=== PATIENT | female | born 1945 | race Caucasian/White ===

== ENCOUNTER 2017-11-17 15:53 | Inpatient (IN) ==
[2017-11-17 16:08] VITALS: BMI 29.7
--- NOTE | 2017-11-17 17:37 | DR.GENAD ---
HPI Time Seen Time Seen by Provider: 11/17/17 17:20 PCP Primary Care Physician: Juan HPI Comment HPI Comment: PATIENT WAS DIAGNOSE WITH THE FLU AND STREP THROAT 9 DAYS AGO. ON ANTIBIOTIC AND CONTINUE TO HAVE PRODUCTIVE COUGH, CHEST PAIN AND SOB. PATIENT ALSO TOOK MARIYA FLU. SHE IS STILL RUNNING FEVER. Complaint/Symptoms Chief Complaint Doctors Comments: GENERALIZE WEAKNES, FEVER, PRODUCTIVE COUGH ANOREXIA THAT IS GETTING WORSE. Chief Complaint:: Patient stated she has been weak with a fever for 9 days. Patient stated she tested positive for the flu and strep throat a few days ago. Patient states she can not get over it and has been taking all prescribed medications. Nurses notes reviewed Nurses Notes Review: Yes Source History Provided: Patient and Friend Mode of Arrival Mode of Arrival: Ambulatory Timing Onset of Chief Complaint: 11/08/17 Came on: Gradually Duration Duration: Constant Duration: Days Severity Severity: Moderate Modifying Factors Worsens:: NONE Improves:: NONE PMH PMH Past Medical History: Yes Past Medical History: Anemia, Cirrhosis, Diabetes, Hypertension, Liver Disease and PR Past Medical History Comment: Liver disease, esphopageal varies, chronic constipation Past Surgical History: Yes Surgical History: Angioplasty/Stents and Appendectomy Past Surgical History Comment: cataracts Family History History of Family Medical Conditions: Yes Family Medical History: Diabetes Mellitus and Hypertension Social History Does patient currently use any type of tobacco product: No Have you used tobacco products in the last 12 months: No Type of Tobacco Use: None Does any household member use tobacco: No Alcohol Use: None Do you use any recreational Drugs:: No Lives With: Family Lives Where: Home infectious screening In the last 2 months have you had wt loss of >10#?: NO Have you had fever, night sweats or hemotysis?: No Have you traveled outside the country in the last 6 months?: No Isolation: Standard ROS Review of Systems Constitutional: Weakness and Fatigue; negative Chills and Fever Eyes: No Symptoms Reported ENTM: Nose Congestion and Throat Pain Respiratoy: Productive Cough, Short of Breath and Wheezing Cardiovascular: Chest Pain Gastrointestinal/Abdominal: Abdominal Pain and Nausea Genitourinary: No Symptoms Reported Neurological: Headache, Weakness and Dizziness Musculoskeletal: Muscle Pain Hematologic/Lymphatic: Easy Bleeding and Easy Bruising Endocrine: Decreased Appetite; negative Flushing Psychiatric: No Symptoms Reported All Other Systems: Reviewed and Negative PE Vital Signs Vitals: Temperature 98.4 F Pulse Rate [Left] 83 Pulse Rate 68 Respiratory Rate 22 Blood Pressure [Left Arm] 148/66 Blood Pressure 117/59 O2 Sat by Pulse Oximetry 96 General Limitations: No Limitations General Appearance: Alert and In No Apparent Distress Head Head Exam: Normal Inspection Eyes Eye exam: Normal Appearance, PERRL and EOMI; negative Scleral Icterus and Conjunctival Injection ENT ENT Exam: Normal Oropharynx, Normal External Ear Exam, Mucous Membranes Dry and TM's Normal Bilaterally External Ear Exam: Normal External Inspection TM/Canal Exam: Bilateral: Normal Nose Exam: Normal Nose Exam Mouth Exam: Normal Inspection Throat Exam: Normal Inspection Neck Neck Exam: Normal Inspection and Trachea Midline Chest Chest Inspection: Normal Inspection and Symmetric Chest Wall Rise Respiratory Respiratory Exam: Normal Lung Sounds Bilat Respiratory Exam: Bilateral: Wheezing and Bilateral: Rhonchi and Lower: Wheezing and Lower: Rhonchi Cardiovascular Cardiovascular Exam: Regular Rate and Normal Rhythm Abdominal Exam Abdominal Exam: Normal Inspection, Normal Bowel Sounds and Soft; negative Tenderness Extremities Extremities Exam: Normal Inspection Back Back Exam: Normal Inspection Neurologic Neurological Exam: Alert, Oriented X3 and CN II-XII Intact; negative Motor Sensory Deficit Psychiatric Psychiatric Exam: Anxious Skin Skin Exam: Dry MDM Additional Information Additional Information Obtained From: Family Differential Diagnosis Differential Diagnosis: GENERALIZE WEAKNESS, PR, PNEUMONIA, BORNCHITIS, COURSE Treatment Treatment: SEE ORDERS. Education/Counseling Education/Counseling: Patient, Family and Education Educated On: Diagnosis ROR Labs Reviewed Laboratory Results Reviewed?: Yes Result Diagrams: 11/17/17 17:35 11/17/17 22:41 Laboratory: WBC 11.1 X10^3/uL (3.6-10.0) H 11/17/17 17:35 RBC 4.53 X10^6/uL (3.5-5.4) 11/17/17 17:35 Hgb 15.2 g/dL (12.0-16.0) 11/17/17 17:35 Hct 42.6 % (36.0-47.0) 11/17/17 17:35 MCV 94.1 fL (80.0-100.0) 11/17/17 17:35 MCH 33.5 pg (27.0-34.0) 11/17/17 17:35 MCHC 35.6 g/dL (33.0-35.0) H 11/17/17 17:35 RDW 14.5 % (11.6-16.5) 11/17/17 17:35 Plt Count 89 X10^3/uL (150.0-450.0) L 11/17/17 17:35 MPV 8.2 fL (7.4-11.0) 11/17/17 17:35 Neut % (Auto) 65.1 % (42.0-75.0) 11/17/17 17:35 Lymph % (Auto) 25.8 % (21.0-51.0) 11/17/17 17:35 [place] % (Auto) 7.0 % (0.0-13.0) 11/17/17 17:35 Eos % (Auto) 0.8 % (0.9-2.9) L 11/17/17 17:35 Baso % (Auto) 1.3 % (0.2-1.0) H 11/17/17 17:35 Neut # (Auto) 7.2 x10^3/uL (2.2-4.8) H 11/17/17 17:35 Lymph # (Auto) 2.9 X10^3/uL (1.3-2.9) 11/17/17 17:35 [place] # (Auto) 0.8 x10^3/uL (0.3-0.8) 11/17/17 17:35 Eos # (Auto) 0.1 x10^3/uL (0.0-0.2) 11/17/17 17:35 Baso # (Auto) 0.1 X10^3/uL (0.0-0.1) 11/17/17 17:35 Absolute Nucleated RBC 0.0 /100WBC 11/17/17 17:35 Sodium 135 mmol/L (136-145) L 11/17/17 17:35 Corrected Sodium 140 mmol/L (136-145) 11/17/17 17:35 Potassium 4.3 mmol/L (3.5-5.1) 11/17/17 17:35 Chloride 101 mmol/L (98-107) 11/17/17 17:35 Carbon Dioxide 27.2 mmol/L (21-32) 11/17/17 17:35 BUN 19 mg/dL (7-18) H 11/17/17 17:35 Creatinine 1.01 mg/dL (0.55-1.02) 11/17/17 17:35 Est GFR (MDRD) Af Amer > 60 (>60) 11/17/17 17:35 Est GFR (MDRD) Non-Af 57 (>60) L 11/17/17 17:35 Glucose 469 mg/dL (65-99) H 11/17/17 22:41 POC Glucose (mg/dL) 404 mg/dL (65-99) H* 11/17/17 22:19 Calcium 9.3 mg/dL (8.5-10.1) 11/17/17 17:35 Corrected Calcium 10.4 mg/dL (8.5-10.1) H 11/17/17 17:35 Total Bilirubin 1.80 mg/dL (0.2-1.0) H 11/17/17 17:35 AST 49 Units/L (15-37) H 11/17/17 17:35 ALT 47 Units/L (12-78) 11/17/17 17:35 Alkaline Phosphatase 124 Units/L (46-116) H 11/17/17 17:35 Total Protein 7.3 g/dL (6.4-8.2) 11/17/17 17:35 Albumin 2.6 g/dL (3.4-5.0) L 11/17/17 17:35 Globulin 4.7 g/dL (2.5-4.5) H 11/17/17 17:35 Albumin/Globulin Ratio 0.6 Ratio (1.1-2.1) L 11/17/17 17:35 Specimen Type Clean catch urine 11/17/17 18:04 Urine Color [place] (YELLOW) 11/17/17 18:04 Urine Appearance Slightly hazy (CLEAR) 11/17/17 18:04 Urine pH 5.0 (5.0 - 8.0) 11/17/17 18:04 Ur Specific [place] 1.025 (1.000-1.030) 11/17/17 18:04 Urine Protein 1+ (NEGATIVE) 11/17/17 18:04 Urine Glucose (UA) 4+ (NEGATIVE) 11/17/17 18:04 Urine Ketones 1+ (NEGATIVE) 11/17/17 18:04 Urine Occult Blood 1+ (NEGATIVE) 11/17/17 18:04 Urine Nitrite Negative (NEGATIVE) 11/17/17 18:04 Urine Bilirubin 1+ (NEGATIVE) 11/17/17 18:04 Urine Urobilinogen 2+ (NORMAL) 11/17/17 18:04 Ur Leukocyte Esterase 1+ (NEGATIVE) 11/17/17 18:04 Urine RBC 3-5 /HPF (NONE SEEN) 11/17/17 18:04 Urine WBC 0-2 /HPF (NONE SEEN) 11/17/17 18:04 Ur Squamous Epith Cells Moderate /HPF (NEGATIVE) 11/17/17 18:04 Urine Bacteria Trace /HPF (NEGATIVE) 11/17/17 18:04 Urine Mucus Few /HPF (NEGATIVE) 11/17/17 18:04 Urine Yeast Few /HPF (NEGATIVE) 11/17/17 18:04 Ur Culture Indicated? No/not indicated 11/17/17 18:04 Acetone, Semi-Quant Negative (NEGATIVE) 11/17/17 17:35 XRAY XRAY Interpreted by: Radiologist XRAY Findings: REPORT DISCUSS WITH PATIENT. Diagnosis Discharge Problem: Generalized weakness, Dehydration, Bronchitis
[2017-11-17 17:50] LABS: BASOPHILS # (AUTO) 0.1 X10^3/uL (0.0-0.1); BASOPHILS % (AUTO) 1.3 % (0.2-1.0); EOSINOPHILS # (AUTO) 0.1 x10^3/uL (0.0-0.2); EOSINOPHILS % (AUTO) 0.8 % (0.9-2.9); HEMATOCRIT 42.6 % (36.0-47.0); HEMOGLOBIN 15.2 g/dL (12.0-16.0); LYMPHOCYTES # (AUTO) 2.9 X10^3/uL (1.3-2.9); LYMPHOCYTES % (AUTO) 25.8 % (21.0-51.0); MEAN CORPUSCULAR HEMOGLOBIN 33.5 pg (27.0-34.0); MEAN CORPUSCULAR HGB CONC 35.6 g/dL (33.0-35.0); MEAN CORPUSCULAR VOLUME 94.1 fL (80.0-100.0); MEAN PLATELET VOLUME 8.2 fL (7.4-11.0); MONOCYTES # (AUTO) 0.8 x10^3/uL (0.3-0.8); NEUTROPHILS # (AUTO) 7.2 x10^3/uL (2.2-4.8); NEUTROPHILS % (AUTO) 65.1 % (42.0-75.0); PLATELET COUNT 89 X10^3/uL (150.0-450.0); RED BLOOD COUNT 4.53 X10^6/uL (3.5-5.4); RED CELL DISTRIBUTION WIDTH 14.5 % (11.6-16.5); WHITE BLOOD COUNT 11.1 X10^3/uL (3.6-10.0)
--- NOTE | 2017-11-17 17:55 | RAD ---
HISTORY: Cough. Study: Portable chest. Comparison: None. Findings: Study is limited secondary to technique and costophrenic angles off the field of view. The trachea is midline. The cardiac silhouette is at the upper limits of normal. No obvious focal c onsolidation, pleural effusion, or pneumothorax. Degenerative changes of the shoulders. The osseous structures otherwise appear normal for age. IMPRESSION: No acute cardiopulmonary disease. Reported By:
[2017-11-17 18:03] LABS: ALANINE AMINOTRANSFERASE 47 Units/L (12-78); ALBUMIN 2.6 g/dL (3.4-5.0); ALKALINE PHOSPHATASE 124 Units/L (46-116); ASPARTATE AMINO TRANSFERASE 49 Units/L (15-37); BLOOD UREA NITROGEN 19 mg/dL (7-18); CALCIUM 9.3 mg/dL (8.5-10.1); CARBON DIOXIDE 27.2 mmol/L (21-32); CHLORIDE 101 mmol/L (98-107); COR CA(FOR HYPOALB) 10.4 mg/dL (8.5-10.1); COR NA(FOR HYPERGLY) 140 mmol/L (136-145); CREATININE 1.01 mg/dL (0.55-1.02); SODIUM 135 mmol/L (136-145); TOTAL PROTEIN 7.3 g/dL (6.4-8.2); eGFR NON BLACK RACES 57 (>60)
[2017-11-17] MEDS: NS 1000 ML 1,000 ML IV SCH (18:06)
[2017-11-17 18:26] LABS: BILIRUBIN,URINE 1+ (NEGATIVE); BLOOD/HEMOGLOBIN,URINE 1+ (NEGATIVE); GLUCOSE, URINE 4+ (NEGATIVE); KETONES,URINE 1+ (NEGATIVE); LEUKOCYTE ESTERASE ,URINE 1+ (NEGATIVE); NITRITES,URINE NEGATIVE (NEGATIVE); PROTEIN,URINE 1+ (NEGATIVE); UROBILINOGEN,URINE 2+ (NORMAL)
[2017-11-17 18:27] LABS: APPEARANCE,URINE SLIGHTLY HAZY (CLEAR); COLOR,URINE ORANGE (YELLOW)
[2017-11-17 18:35] LABS: BACTERIA,URINE TRACE /HPF (NEGATIVE); MUCUS,URINE FEW /HPF (NEGATIVE); SQUAMOUS EPITHELIAL CELL,UR MODERATE /HPF (NEGATIVE); YEAST,URINE FEW /HPF (NEGATIVE)
[2017-11-17] MEDS ORDERED: SOLU-Medrol 40 MG VIAL IVP ONE (20:07)
[2017-11-17] MEDS ORDERED: NS 100 ML IV 100 ML IV ONE (20:13)
[2017-11-17] MEDS ORDERED: ROCEPHIN VIAL 1 GRAM IVP SCH (20:15)
[2017-11-17] MEDS: ROCEPHIN VIAL 1 GRAM IVP SCH (21:51)
[2017-11-17] MEDS: SOLU-Medrol 40 MG VIAL IVP SCH (21:51)
[2017-11-17] MEDS: DUONEB 0.5 MG/3 MG NEB SCH (22:39)
[2017-11-17] MEDS: HumuLIN R SC PRN (23:35)
[2017-11-18] MEDS: DUONEB 0.5 MG/3 MG NEB SCH ×6 (01:25→20:02)
[2017-11-18] MEDS: NS 1000 ML 1,000 ML IV SCH ×4 (02:45→22:33)
[2017-11-18 05:16] LABS: BASOPHILS % (AUTO) 0.3 % (0.2-1.0); EOSINOPHILS % (AUTO) 0.1 % (0.9-2.9); HEMATOCRIT 38.6 % (36.0-47.0); HEMOGLOBIN 13.5 g/dL (12.0-16.0); LYMPHOCYTES # (AUTO) 1.2 X10^3/uL (1.3-2.9); LYMPHOCYTES % (AUTO) 20.9 % (21.0-51.0); MEAN CORPUSCULAR HEMOGLOBIN 33.4 pg (27.0-34.0); MEAN CORPUSCULAR HGB CONC 34.8 g/dL (33.0-35.0); MEAN CORPUSCULAR VOLUME 95.8 fL (80.0-100.0); MEAN PLATELET VOLUME 8.5 fL (7.4-11.0); MONOCYTES # (AUTO) 0.1 x10^3/uL (0.3-0.8); MONOCYTES % (AUTO) 1.9 % (0.0-13.0); NEUTROPHILS # (AUTO) 4.5 x10^3/uL (2.2-4.8); NEUTROPHILS % (AUTO) 76.8 % (42.0-75.0); PLATELET COUNT 68 X10^3/uL (150.0-450.0); RED BLOOD COUNT 4.03 X10^6/uL (3.5-5.4); RED CELL DISTRIBUTION WIDTH 14.5 % (11.6-16.5); WHITE BLOOD COUNT 5.9 X10^3/uL (3.6-10.0)
[2017-11-18 05:17] LABS: BLOOD UREA NITROGEN 18 mg/dL (7-18); CALCIUM 8.3 mg/dL (8.5-10.1); CARBON DIOXIDE 26.4 mmol/L (21-32); CHLORIDE 103 mmol/L (98-107); COR NA(FOR HYPERGLY) 144 mmol/L (136-145); SODIUM 135 mmol/L (136-145); eGFR NON BLACK RACES 52 (>60)
[2017-11-18] MEDS: HumuLIN R SC PRN ×3 (05:42→17:39)
[2017-11-18] MEDS: SOLU-Medrol 40 MG VIAL IVP SCH (08:20)
[2017-11-18] MEDS ORDERED: NYSTATIN CREAM ONE ×2 (10:36→11:04)
[2017-11-18] MEDS: NYSTATIN CREAM TOP SCH ×3 (10:43→22:26)
[2017-11-18] MEDS ORDERED: TESSALON PERLES PO PRN (10:47)
[2017-11-18] MEDS ORDERED: TUSSIONEX PENNKINETIC SUSP PO PRN (10:48)
[2017-11-18] MEDS ORDERED: ROXICODONE TAB 5 MG PO PRN (10:49)
[2017-11-18] MEDS ORDERED: SALINE 3% 15 ML NEB TX ONE (10:52)
[2017-11-18] MEDS ORDERED: PROVENTIL NEB TX 0.083% 2.5MG/ 3ML NEB PRN (10:53)
[2017-11-18] MEDS ORDERED: SALINE 3% 15 ML NEB TX NEB ONE (10:54)
[2017-11-18] MEDS: INDERAL TAB 10 MG PO SCH (12:44)
[2017-11-18] MEDS: ALDACTONE TAB 25 MG PO SCH (12:44)
[2017-11-18] MEDS: CELEXA PO SCH ×2 (12:44→22:25)
[2017-11-18] MEDS: PROTONIX TAB 40 MG PO SCH (12:44)
[2017-11-18] MEDS: CHRONULAC PO SCH ×2 (13:00→22:25)
--- NOTE | 2017-11-18 14:25 | DR.H&P ---
H&P - History & Physical for Day of: H&P Date: 11/17/17 - Chief Complaint Chief Complaint: FEVER, CCC - History of Present Illness History of Present Illness: 72 WF ER ADMISSION AFTER PRESENTING WITH CO WEAKNESS , CCC, SOB, RECENTLY DIAGNOSED WITH FLU AND AND STREP THROAT BY PCP. PT STATES SHE HAD COMPLETED 2 ROUND OF ORAL ANTIBIOTICS, CONTINUES WITH WEAKNESS AND TIGHT COUGH. PT HAS PMH OF HTN, OA, DM AND CHRONIC LIVER FAILURE. PT ADMITTED FOR TREATEMENT OF ACUTE RESP ILLNESS. - Past Medical History Past Medical History: [place], Hypertension, Diabetes, Liver Disease, Cirrhosis, Anemia - Past Surgical History Surgical History: Angioplasty/Stents, Appendectomy - Family History Family Medical History: Diabetes Mellitus, Hypertension - Social History Does patient currently use any type of tobacco product: No Have you used tobacco products in the last 12 months: No Type of Tobacco Use: None Does any household member use tobacco: No Alcohol Use: None Drug Use: None - Medications Home Medications: shellfish derived Allergy (Verified 11/17/17 16:08) CONTINUE taking the following medications albuterol sulfate [ProAir HFA] 1 - 2 puff INHALATION Q4H PRN 11/17/17 [History] amoxicillin 1 tab PO TID 11/17/17 [History] benzonatate 2 tab PO Q4-6H PRN 11/17/17 [History] citalopram 1 tab PO BID 11/17/17 [History] clobetasol 1 applic TOPICAL BID PRN 11/17/17 [History] codeine-guaifenesin [Cheratussin AC] 5 ml PO Q8H PRN 11/17/17 [History] insulin glargine [Lantus Solostar U-100 Insulin] 45 units SUBCUT HS 11/17/17 [ History] lactulose 45 ml PO TID 11/17/17 [History] levofloxacin 1 tab PO DAILY 11/17/17 [History] nadolol 1 tab PO DAILY 11/17/17 [History] oseltamivir [Tamiflu] 1 tab PO BID 11/17/17 [History] oxycodone 1 tab PO Q4-6H PRN 11/17/17 [History] pantoprazole 1 tab PO DAILY 11/17/17 [History] spironolactone 2 tab PO DAILY 11/17/17 [History] - Review of Systems Constitutional: Fever, Weakness, Malaise Eyes: No Symptoms Reported ENT: Nose Discharge, Nose Congestion, Throat Pain Respiratory: Cough, Shortness of Breath, SOB with Excertion, Wheezing Cardiovascular: No Symptoms Reported, Edema Gastrointestinal: No Symptoms Reported, Nausea Genitourinary: No Symptoms Reported Musculoskeletal: No Symptoms Reported Skin: Jaundice Neurological: No Symptoms Reported - Physical Exam Vital Signs: Temperature 98.0 F Pulse Rate [Left] 78 Pulse Rate 68 Respiratory Rate 20 Blood Pressure [Left Arm] 131/62 Blood Pressure 117/59 O2 Sat by Pulse Oximetry 94 Oriented: Normal Eyes: Normal Ear: Normal Nose: Normal Throat: Dry Respiratory: RLL Diminished, LLL Diminished Cardiovascular: Normal, Edema (BILATERAL TRACE EDEMA TO LE'S) : Normal Auscultation: Bowel Sounds: Normal Tenderness: Epigastric (MILD) Skin: Decreased Turgur Musculoskeletal: Normal Psychiatric: Anxiety Affect: Anxious Speech Pattern: Clear - Assessment/Plan (1) Cirrhosis Status: Acute Plan: ADMIT, RESP CONSULT, BLOOD AND SPUTUM CULTURES. IV ATBX, SUPPLEMENTAL O2. BLOOD PRESSURE AND BLOOD SUGAR CONTROL. VERIFY HOME MEDS, CXR ON ADMISSION (2) Diabetes Status: Acute (3) Bronchitis Status: Acute (4) Dehydration Status: Acute (5) Generalized weakness Status: Acute - Allergies Allergies/Adverse Reactions: Allergies Allergy/AdvReac Type Severity Reaction Status Date / Time shellfish derived Allergy Verified 11/17/17 16:08
--- NOTE | 2017-11-18 14:30 | PCM.PROG ---
Progress Note - Progress Note for Day of Date of Exam: 11/18/17 - Subjective Subjective: 72 WF ER ADMISSION ON 11/17 WITH ACUTE BRONCHITIS AND WEAKNESS, ELEVATED BLOOD SUGAR LEVELS. BLOOD AND SPUTUM COLLECTED PER PNEUMONIA PROTOCOL, PT CURRENTLY ON INSULIN THERAPY FOR BS CONTROL. NURSING STAFF REPORTS PT HAVING EPISODES OF "WORD SALAD" PT HAS HX LIVER FAILURE, WILL RESUME LACTULOSE AND CHECK AMMONIA LEVEL THIS AM. CONTINUE WITH IV ATBX, RESP THERAPY, SUPPLEMENTAL O2 - Past Medical Family Social History Past Med/Fam/Surg Hx: No changes since H&P Allergies: Allergies shellfish derived Allergy (Verified 11/17/17 16:08) - Review of Systems ROS: No change since H&P - Vital Signs and I&O's Vital Signs: Temperature 98.0 F Pulse Rate [Left] 78 Pulse Rate 68 Respiratory Rate 20 Blood Pressure [Left Arm] 131/62 Blood Pressure 117/59 O2 Sat by Pulse Oximetry 94 Intake and Output: Intake & Output 11/16/17 11/17/17 11/18/17 11/19/17 11:59 11:59 11:59 11:59 Intake Total 824 / 824 Output Total 600 / 600 Balance 224 / 224 - Physical Exam Oriented: Normal Eyes: Normal Ear: Normal Nose: Normal Throat: Dry Respiratory: Diminished Cardiovascular: Normal, Edema (BILATERAL TRACE EDEMA TO LE'S) : Normal Auscultation: Bowel Sounds: Normal Tenderness: Epigastric (MILD) Skin: Decreased Turgur Musculoskeletal: Normal Psychiatric: Anxiety Affect: Anxious Speech Pattern: Clear - Laboratory and Diagnostics Result Diagrams: 11/18/17 04:03 11/18/17 11:45 Labs: Laboratory WBC 5.9 X10^3/uL (3.6-10.0) 11/18/17 04:03 RBC 4.03 X10^6/uL (3.5-5.4) 11/18/17 04:03 Hgb 13.5 g/dL (12.0-16.0) 11/18/17 04:03 Hct 38.6 % (36.0-47.0) 11/18/17 04:03 MCV 95.8 fL (80.0-100.0) 11/18/17 04:03 MCH 33.4 pg (27.0-34.0) 11/18/17 04:03 MCHC 34.8 g/dL (33.0-35.0) 11/18/17 04:03 RDW 14.5 % (11.6-16.5) 11/18/17 04:03 Plt Count 68 X10^3/uL (150.0-450.0) L 11/18/17 04:03 MPV 8.5 fL (7.4-11.0) 11/18/17 04:03 Neut % (Auto) 76.8 % (42.0-75.0) H 11/18/17 04:03 Lymph % (Auto) 20.9 % (21.0-51.0) L 11/18/17 04:03 [place] % (Auto) 1.9 % (0.0-13.0) 11/18/17 04:03 Eos % (Auto) 0.1 % (0.9-2.9) L 11/18/17 04:03 Baso % (Auto) 0.3 % (0.2-1.0) 11/18/17 04:03 Neut # (Auto) 4.5 x10^3/uL (2.2-4.8) 11/18/17 04:03 Lymph # (Auto) 1.2 X10^3/uL (1.3-2.9) L 11/18/17 04:03 [place] # (Auto) 0.1 x10^3/uL (0.3-0.8) L 11/18/17 04:03 Eos # (Auto) 0.0 x10^3/uL (0.0-0.2) 11/18/17 04:03 Baso # (Auto) 0.0 X10^3/uL (0.0-0.1) 11/18/17 04:03 Absolute Nucleated RBC 0.0 /100WBC 11/18/17 04:03 Sodium 135 mmol/L (136-145) L 11/18/17 04:03 Corrected Sodium 144 mmol/L (136-145) 11/18/17 04:03 Potassium 5.0 mmol/L (3.5-5.1) 11/18/17 04:03 Chloride 103 mmol/L (98-107) 11/18/17 04:03 Carbon Dioxide 26.4 mmol/L (21-32) 11/18/17 04:03 BUN 18 mg/dL (7-18) 11/18/17 04:03 Creatinine 1.10 mg/dL (0.55-1.02) H 11/18/17 04:03 Est GFR (MDRD) Af Amer > 60 (>60) 11/18/17 04:03 Est GFR (MDRD) Non-Af 52 (>60) L 11/18/17 04:03 Glucose 461 mg/dL (65-99) H 11/18/17 11:45 POC Glucose (mg/dL) 443 mg/dL (65-99) H* 11/18/17 11:28 Calcium 8.3 mg/dL (8.5-10.1) L 11/18/17 04:03 Corrected Calcium 10.4 mg/dL (8.5-10.1) H 11/17/17 17:35 Total Bilirubin 1.80 mg/dL (0.2-1.0) H 11/17/17 17:35 AST 49 Units/L (15-37) H 11/17/17 17:35 ALT 47 Units/L (12-78) 11/17/17 17:35 Alkaline Phosphatase 124 Units/L (46-116) H 11/17/17 17:35 Ammonia 25 umol/L (11-32) 11/18/17 09:25 Total Protein 7.3 g/dL (6.4-8.2) 11/17/17 17:35 Albumin 2.6 g/dL (3.4-5.0) L 11/17/17 17:35 Globulin 4.7 g/dL (2.5-4.5) H 11/17/17 17:35 Albumin/Globulin Ratio 0.6 Ratio (1.1-2.1) L 11/17/17 17:35 Specimen Type Clean catch urine 11/17/17 18:04 Urine Color [place] (YELLOW) 11/17/17 18:04 Urine Appearance Slightly hazy (CLEAR) 11/17/17 18:04 Urine pH 5.0 (5.0 - 8.0) 11/17/17 18:04 Ur Specific [place] 1.025 (1.000-1.030) 11/17/17 18:04 Urine Protein 1+ (NEGATIVE) 11/17/17 18:04 Urine Glucose (UA) 4+ (NEGATIVE) 11/17/17 18:04 Urine Ketones 1+ (NEGATIVE) 11/17/17 18:04 Urine Occult Blood 1+ (NEGATIVE) 11/17/17 18:04 Urine Nitrite Negative (NEGATIVE) 11/17/17 18:04 Urine Bilirubin 1+ (NEGATIVE) 11/17/17 18:04 Urine Urobilinogen 2+ (NORMAL) 11/17/17 18:04 Ur Leukocyte Esterase 1+ (NEGATIVE) 11/17/17 18:04 Urine RBC 3-5 /HPF (NONE SEEN) 11/17/17 18:04 Urine WBC 0-2 /HPF (NONE SEEN) 11/17/17 18:04 Ur Squamous Epith Cells Moderate /HPF (NEGATIVE) 11/17/17 18:04 Urine Bacteria Trace /HPF (NEGATIVE) 11/17/17 18:04 Urine Mucus Few /HPF (NEGATIVE) 11/17/17 18:04 Urine Yeast Few /HPF (NEGATIVE) 11/17/17 18:04 Ur Culture Indicated? No/not indicated 11/17/17 18:04 Acetone, Semi-Quant Negative (NEGATIVE) 11/17/17 17:35 - Plan (1) Bronchitis Status: Acute Plan: RESP CONSULT, BLOOD AND SPUTUM CULTURES. IV ATBX, SUPPLEMENTAL O2. BLOOD PRESSURE AND BLOOD SUGAR CONTROL. CONTINUED HOME MEDS, CXR Q AM. AMMONIA LEVEL, STRICT I & OS (2) Cirrhosis Status: Acute (3) Diabetes Status: Acute (4) Dehydration Status: Acute (5) Generalized weakness Status: Acute
[2017-11-18] MEDS: ZITHROMAX INJ 500 MG VIAL 500 MG in NS 250 ML IV 250 ML IV SCH (14:56)
[2017-11-18] MEDS: XIFAXAN PO SCH ×2 (17:39→22:26)
[2017-11-18] MEDS ORDERED: SNACK - Diabetic Appropriate PO SCH (20:00)
[2017-11-18] MEDS ORDERED: NS 100 ML IV + SPIKE MINIBAG* 100 ML IV ONE (21:01)
[2017-11-18] MEDS: ROCEPHIN VIAL 1 GRAM IVP SCH (22:27)
[2017-11-18] MEDS: LANTUS SC SCH (22:27)
[2017-11-18] MEDS: SNACK - Diabetic Appropriate PO SCH (22:28)
[2017-11-19] MEDS: DUONEB 0.5 MG/3 MG NEB SCH ×6 (00:30→19:59)
[2017-11-19 05:46] LABS: BASOPHILS % (AUTO) 0.3 % (0.2-1.0); EOSINOPHILS % (AUTO) 0.2 % (0.9-2.9); HEMATOCRIT 35.9 % (36.0-47.0); HEMOGLOBIN 12.8 g/dL (12.0-16.0); LYMPHOCYTES # (AUTO) 2.4 X10^3/uL (1.3-2.9); LYMPHOCYTES % (AUTO) 25.1 % (21.0-51.0); MEAN CORPUSCULAR HEMOGLOBIN 33.7 pg (27.0-34.0); MEAN CORPUSCULAR HGB CONC 35.7 g/dL (33.0-35.0); MEAN CORPUSCULAR VOLUME 94.3 fL (80.0-100.0); MEAN PLATELET VOLUME 8.5 fL (7.4-11.0); MONOCYTES # (AUTO) 0.4 x10^3/uL (0.3-0.8); MONOCYTES % (AUTO) 4.2 % (0.0-13.0); NEUTROPHILS # (AUTO) 6.7 x10^3/uL (2.2-4.8); NEUTROPHILS % (AUTO) 70.2 % (42.0-75.0); PLATELET COUNT 70 X10^3/uL (150.0-450.0); RED CELL DISTRIBUTION WIDTH 14.3 % (11.6-16.5); WHITE BLOOD COUNT 9.6 X10^3/uL (3.6-10.0)
[2017-11-19] MEDS: CHRONULAC PO SCH ×3 (06:01→21:54)
[2017-11-19] MEDS: NYSTATIN CREAM TOP SCH ×3 (06:02→22:01)
[2017-11-19] MEDS: HumuLIN R SC PRN ×4 (06:02→22:01)
[2017-11-19] MEDS: NS 1000 ML 1,000 ML IV SCH ×3 (06:03→18:03)
[2017-11-19 06:05] LABS: ALANINE AMINOTRANSFERASE 38 Units/L (12-78); ALBUMIN 2.1 g/dL (3.4-5.0); ALKALINE PHOSPHATASE 96 Units/L (46-116); ASPARTATE AMINO TRANSFERASE 41 Units/L (15-37); BLOOD UREA NITROGEN 14 mg/dL (7-18); CALCIUM 8.2 mg/dL (8.5-10.1); CARBON DIOXIDE 27.3 mmol/L (21-32); CHLORIDE 105 mmol/L (98-107); COR CA(FOR HYPOALB) 9.7 mg/dL (8.5-10.1); COR NA(FOR HYPERGLY) 142 mmol/L (136-145); CREATININE 0.93 mg/dL (0.55-1.02); SODIUM 137 mmol/L (136-145); eGFR NON BLACK RACES > 60 (>60)
[2017-11-19] MEDS: XIFAXAN PO SCH ×2 (08:55→22:05)
[2017-11-19] MEDS: ZITHROMAX INJ 500 MG VIAL 500 MG in NS 250 ML IV 250 ML IV SCH (08:55)
[2017-11-19] MEDS: ALDACTONE TAB 25 MG PO SCH (08:55)
[2017-11-19] MEDS: INDERAL TAB 10 MG PO SCH (08:57)
[2017-11-19] MEDS: CELEXA PO SCH ×2 (08:57→21:56)
[2017-11-19] MEDS: PROTONIX TAB 40 MG PO SCH (08:57)
--- NOTE | 2017-11-19 09:38 | RAD ---
Examination: Portable AP chest History: SOB Comparison 11/17/2017 Findings: Continued normal heart size with essentially clear lungs and pleural spaces. Impression: No significant change or acute abnormality. Reported By:
--- NOTE | 2017-11-19 11:00 | PCM.PROG ---
Progress Note - Progress Note for Day of Date of Exam: 11/19/17 - Subjective Subjective: 72 WF ER ADMISSION ON 11/17 WITH ACUTE BRONCHITIS AND WEAKNESS, ELEVATED BLOOD SUGAR LEVELS. BLOOD AND SPUTUM COLLECTED PER PNEUMONIA PROTOCOL, PT CURRENTLY ON INSULIN THERAPY FOR BS CONTROL. NURSING STAFF REPORTS PT HAVING EPISODES OF "WORD SALAD" PT HAS HX LIVER FAILURE, AMMONIA LEVEL NORMAL, CURRENTLY ON XIFAXIN AND LACTULOSE.CONTINUE WITH IV ATBX, RESP THERAPY, SUPPLEMENTAL O2, BUDESONIDE TO NEBS, D/C'D IV STEROIDS - Past Medical Family Social History Past Med/Fam/Surg Hx: No changes since H&P Allergies: Allergies shellfish derived Allergy (Verified 11/17/17 16:08) - Review of Systems ROS: No change since H&P - Vital Signs and I&O's Vital Signs: Temperature 98.2 F Pulse Rate [Left] 76 Pulse Rate 86 Respiratory Rate 20 Blood Pressure [Left Arm] 134/78 Blood Pressure 117/59 O2 Sat by Pulse Oximetry 92 Intake and Output: Intake & Output 11/16/17 11/17/17 11/18/17 11/19/17 11:59 11:59 11:59 11:59 Intake Total 824 / 824 2280 / 2280 Output Total 600 / 600 Balance 224 / 224 2280 / 2280 - Physical Exam Oriented: Normal Eyes: Normal Ear: Normal Nose: Normal Throat: Dry Respiratory: Diminished Cardiovascular: Normal, Edema (BILATERAL TRACE EDEMA TO LE'S) : Normal Auscultation: Bowel Sounds: Normal Tenderness: Epigastric (MILD) Skin: Decreased Turgur Musculoskeletal: Normal Psychiatric: Anxiety Affect: Anxious Speech Pattern: Clear, Appropriate - Laboratory and Diagnostics Result Diagrams: 11/19/17 04:25 11/19/17 04:25 Labs: Laboratory WBC 9.6 X10^3/uL (3.6-10.0) 11/19/17 04:25 RBC 3.80 X10^6/uL (3.5-5.4) 11/19/17 04:25 Hgb 12.8 g/dL (12.0-16.0) 11/19/17 04:25 Hct 35.9 % (36.0-47.0) L 11/19/17 04:25 MCV 94.3 fL (80.0-100.0) 11/19/17 04:25 MCH 33.7 pg (27.0-34.0) 11/19/17 04:25 MCHC 35.7 g/dL (33.0-35.0) H 11/19/17 04:25 RDW 14.3 % (11.6-16.5) 11/19/17 04:25 Plt Count 70 X10^3/uL (150.0-450.0) L 11/19/17 04:25 MPV 8.5 fL (7.4-11.0) 11/19/17 04:25 Neut % (Auto) 70.2 % (42.0-75.0) 11/19/17 04:25 Lymph % (Auto) 25.1 % (21.0-51.0) 11/19/17 04:25 [place] % (Auto) 4.2 % (0.0-13.0) 11/19/17 04:25 Eos % (Auto) 0.2 % (0.9-2.9) L 11/19/17 04:25 Baso % (Auto) 0.3 % (0.2-1.0) 11/19/17 04:25 Neut # (Auto) 6.7 x10^3/uL (2.2-4.8) H 11/19/17 04:25 Lymph # (Auto) 2.4 X10^3/uL (1.3-2.9) 11/19/17 04:25 [place] # (Auto) 0.4 x10^3/uL (0.3-0.8) 11/19/17 04:25 Eos # (Auto) 0.0 x10^3/uL (0.0-0.2) 11/19/17 04:25 Baso # (Auto) 0.0 X10^3/uL (0.0-0.1) 11/19/17 04:25 Absolute Nucleated RBC 0.0 /100WBC 11/19/17 04:25 Sodium 137 mmol/L (136-145) 11/19/17 04:25 Corrected Sodium 142 mmol/L (136-145) 11/19/17 04:25 Potassium 4.0 mmol/L (3.5-5.1) 11/19/17 04:25 Chloride 105 mmol/L (98-107) 11/19/17 04:25 Carbon Dioxide 27.3 mmol/L (21-32) 11/19/17 04:25 BUN 14 mg/dL (7-18) 11/19/17 04:25 Creatinine 0.93 mg/dL (0.55-1.02) 11/19/17 04:25 Est GFR (MDRD) Af Amer > 60 (>60) 11/19/17 04:25 Est GFR (MDRD) Non-Af > 60 (>60) 11/19/17 04:25 Glucose 319 mg/dL (65-99) H 11/19/17 04:25 POC Glucose (mg/dL) 302 mg/dL (65-99) H 11/19/17 05:33 Calcium 8.2 mg/dL (8.5-10.1) L 11/19/17 04:25 Corrected Calcium 9.7 mg/dL (8.5-10.1) 11/19/17 04:25 Total Bilirubin 1.10 mg/dL (0.2-1.0) H 11/19/17 04:25 AST 41 Units/L (15-37) H 11/19/17 04:25 ALT 38 Units/L (12-78) 11/19/17 04:25 Alkaline Phosphatase 96 Units/L (46-116) 11/19/17 04:25 Ammonia 25 umol/L (11-32) 11/18/17 09:25 Total Protein 6.0 g/dL (6.4-8.2) L 11/19/17 04:25 Albumin 2.1 g/dL (3.4-5.0) L 11/19/17 04:25 Globulin 3.9 g/dL (2.5-4.5) 11/19/17 04:25 Albumin/Globulin Ratio 0.5 Ratio (1.1-2.1) L 11/19/17 04:25 Specimen Type Clean catch urine 11/17/17 18:04 Urine Color [place] (YELLOW) 11/17/17 18:04 Urine Appearance Slightly hazy (CLEAR) 11/17/17 18:04 Urine pH 5.0 (5.0 - 8.0) 11/17/17 18:04 Ur Specific [place] 1.025 (1.000-1.030) 11/17/17 18:04 Urine Protein 1+ (NEGATIVE) 11/17/17 18:04 Urine Glucose (UA) 4+ (NEGATIVE) 11/17/17 18:04 Urine Ketones 1+ (NEGATIVE) 11/17/17 18:04 Urine Occult Blood 1+ (NEGATIVE) 11/17/17 18:04 Urine Nitrite Negative (NEGATIVE) 11/17/17 18:04 Urine Bilirubin 1+ (NEGATIVE) 11/17/17 18:04 Urine Urobilinogen 2+ (NORMAL) 11/17/17 18:04 Ur Leukocyte Esterase 1+ (NEGATIVE) 11/17/17 18:04 Urine RBC 3-5 /HPF (NONE SEEN) 11/17/17 18:04 Urine WBC 0-2 /HPF (NONE SEEN) 11/17/17 18:04 Ur Squamous Epith Cells Moderate /HPF (NEGATIVE) 11/17/17 18:04 Urine Bacteria Trace /HPF (NEGATIVE) 11/17/17 18:04 Urine Mucus Few /HPF (NEGATIVE) 11/17/17 18:04 Urine Yeast Few /HPF (NEGATIVE) 11/17/17 18:04 Ur Culture Indicated? No/not indicated 11/17/17 18:04 Acetone, Semi-Quant Negative (NEGATIVE) 11/17/17 17:35 - Plan (1) Bronchitis Status: Acute Plan: RESP CONSULT, BLOOD AND SPUTUM CULTURES. IV ATBX, SUPPLEMENTAL O2. BLOOD PRESSURE AND BLOOD SUGAR CONTROL. CONTINUED HOME MEDS, CXR Q AM. AMMONIA LEVEL, STRICT I & OS (2) Cirrhosis Status: Acute Plan: ADMIT, RESP CONSULT, BLOOD AND SPUTUM CULTURES. IV ATBX, SUPPLEMENTAL O2. BLOOD PRESSURE AND BLOOD SUGAR CONTROL. VERIFY HOME MEDS, CXR ON ADMISSION (3) Diabetes Status: Acute (4) Dehydration Status: Acute (5) Generalized weakness Status: Acute
[2017-11-19] MEDS: PULMICORT NEB TX 0.5 MG NEB SCH (19:59)
[2017-11-19] MEDS: SNACK - Diabetic Appropriate PO SCH (20:00)
[2017-11-19] MEDS ORDERED: NS 100 ML IV + SPIKE MINIBAG* 100 ML IV ONE (21:59)
[2017-11-19] MEDS: ROCEPHIN VIAL 1 GRAM IVP SCH (22:00)
[2017-11-19] MEDS: LANTUS SC SCH (22:02)
[2017-11-20 05:43] LABS: BASOPHILS % (AUTO) 0.6 % (0.2-1.0); EOSINOPHILS # (AUTO) 0.1 x10^3/uL (0.0-0.2); EOSINOPHILS % (AUTO) 1.6 % (0.9-2.9); HEMATOCRIT 38.7 % (36.0-47.0); HEMOGLOBIN 13.5 g/dL (12.0-16.0); LYMPHOCYTES # (AUTO) 2.8 X10^3/uL (1.3-2.9); LYMPHOCYTES % (AUTO) 34.4 % (21.0-51.0); MEAN CORPUSCULAR HEMOGLOBIN 33.9 pg (27.0-34.0); MEAN CORPUSCULAR VOLUME 96.8 fL (80.0-100.0); MEAN PLATELET VOLUME 8.4 fL (7.4-11.0); MONOCYTES # (AUTO) 0.7 x10^3/uL (0.3-0.8); MONOCYTES % (AUTO) 8.8 % (0.0-13.0); NEUTROPHILS # (AUTO) 4.4 x10^3/uL (2.2-4.8); NEUTROPHILS % (AUTO) 54.6 % (42.0-75.0); PLATELET COUNT 90 X10^3/uL (150.0-450.0); RED CELL DISTRIBUTION WIDTH 14.5 % (11.6-16.5); WHITE BLOOD COUNT 8.1 X10^3/uL (3.6-10.0)
[2017-11-20 05:51] LABS: ALANINE AMINOTRANSFERASE 57 Units/L (12-78); ALBUMIN 2.2 g/dL (3.4-5.0); ALKALINE PHOSPHATASE 107 Units/L (46-116); ASPARTATE AMINO TRANSFERASE 73 Units/L (15-37); BLOOD UREA NITROGEN 14 mg/dL (7-18); CALCIUM 8.1 mg/dL (8.5-10.1); CARBON DIOXIDE 28.8 mmol/L (21-32); CHLORIDE 109 mmol/L (98-107); COR CA(FOR HYPOALB) 9.5 mg/dL (8.5-10.1); COR NA(FOR HYPERGLY) 144 mmol/L (136-145); SODIUM 140 mmol/L (136-145); eGFR NON BLACK RACES 58 (>60)
[2017-11-20] MEDS: NYSTATIN CREAM TOP SCH ×3 (06:00→21:47)
[2017-11-20] MEDS: HumuLIN R SC PRN ×3 (06:26→17:09)
[2017-11-20] MEDS: CHRONULAC PO SCH ×3 (06:27→21:44)
[2017-11-20] MEDS: NS 1000 ML 1,000 ML IV SCH ×3 (06:28→17:08)
[2017-11-20] MEDS: ZITHROMAX INJ 500 MG VIAL 500 MG in NS 250 ML IV 250 ML IV SCH (08:30)
[2017-11-20] MEDS: ALDACTONE TAB 25 MG PO SCH (08:30)
[2017-11-20] MEDS: PROTONIX TAB 40 MG PO SCH (08:31)
[2017-11-20] MEDS: INDERAL TAB 10 MG PO SCH (08:31)
[2017-11-20] MEDS: CELEXA PO SCH ×2 (08:31→21:45)
[2017-11-20] MEDS: XIFAXAN PO SCH ×2 (08:31→21:44)
[2017-11-20] MEDS: PULMICORT NEB TX 0.5 MG NEB SCH ×2 (08:42→20:51)
[2017-11-20] MEDS: DUONEB 0.5 MG/3 MG NEB SCH ×4 (08:42→20:51)
[2017-11-20] MEDS ORDERED: NS 100 ML IV + SPIKE MINIBAG* 100 ML IV ONE (20:52)
[2017-11-20] MEDS: ROCEPHIN VIAL 1 GRAM IVP SCH (21:44)
[2017-11-20] MEDS: LANTUS SC SCH (21:45)
[2017-11-20] MEDS: SNACK - Diabetic Appropriate PO SCH (21:47)
[2017-11-21] MEDS: NS 1000 ML 1,000 ML IV SCH ×2 (04:53→11:07)
[2017-11-21 05:21] LABS: BASOPHILS % (AUTO) 0.5 % (0.2-1.0); EOSINOPHILS # (AUTO) 0.1 x10^3/uL (0.0-0.2); HEMATOCRIT 36.2 % (36.0-47.0); HEMOGLOBIN 12.8 g/dL (12.0-16.0); LYMPHOCYTES # (AUTO) 2.1 X10^3/uL (1.3-2.9); LYMPHOCYTES % (AUTO) 38.8 % (21.0-51.0); MEAN CORPUSCULAR HEMOGLOBIN 33.9 pg (27.0-34.0); MEAN CORPUSCULAR HGB CONC 35.3 g/dL (33.0-35.0); MEAN PLATELET VOLUME 8.1 fL (7.4-11.0); MONOCYTES # (AUTO) 0.4 x10^3/uL (0.3-0.8); MONOCYTES % (AUTO) 6.8 % (0.0-13.0); NEUTROPHILS # (AUTO) 2.8 x10^3/uL (2.2-4.8); NEUTROPHILS % (AUTO) 51.9 % (42.0-75.0); PLATELET COUNT 63 X10^3/uL (150.0-450.0); RED BLOOD COUNT 3.76 X10^6/uL (3.5-5.4); RED CELL DISTRIBUTION WIDTH 14.8 % (11.6-16.5); WHITE BLOOD COUNT 5.5 X10^3/uL (3.6-10.0)
[2017-11-21 05:37] LABS: ALANINE AMINOTRANSFERASE 60 Units/L (12-78); ALBUMIN 1.9 g/dL (3.4-5.0); ALKALINE PHOSPHATASE 103 Units/L (46-116); ASPARTATE AMINO TRANSFERASE 73 Units/L (15-37); BLOOD UREA NITROGEN 11 mg/dL (7-18); CALCIUM 7.8 mg/dL (8.5-10.1); CARBON DIOXIDE 28.1 mmol/L (21-32); CHLORIDE 107 mmol/L (98-107); COR CA(FOR HYPOALB) 9.5 mg/dL (8.5-10.1); COR NA(FOR HYPERGLY) 144 mmol/L (136-145); CREATININE 0.95 mg/dL (0.55-1.02); SODIUM 139 mmol/L (136-145); TOTAL PROTEIN 5.6 g/dL (6.4-8.2); eGFR NON BLACK RACES > 60 (>60)
[2017-11-21] MEDS: HumuLIN R SC PRN ×2 (06:01→11:34)
[2017-11-21] MEDS: CHRONULAC PO SCH (06:02)
[2017-11-21] MEDS: NYSTATIN CREAM TOP SCH (06:04)
--- NOTE | 2017-11-21 08:19 | RAD ---
HISTORY: Bronchitis Study: Chest AP portable Comparison: None Findings: The heart is enlarged. No congestive heart failure is noted. No acute alveolar infiltrates or pleural effusions are identified. The bony thorax is unremarkable. IMPRESSION: Mild cardiomegaly without congestive heart failure No acute infiltrates Reported By:
[2017-11-21] MEDS: CELEXA PO SCH (08:52)
[2017-11-21] MEDS: ALDACTONE TAB 25 MG PO SCH (08:52)
[2017-11-21] MEDS: XIFAXAN PO SCH (08:52)
[2017-11-21] MEDS: PROTONIX TAB 40 MG PO SCH (08:52)
[2017-11-21] MEDS: ZITHROMAX INJ 500 MG VIAL 500 MG in NS 250 ML IV 250 ML IV SCH (08:53)
[2017-11-21] MEDS: DUONEB 0.5 MG/3 MG NEB SCH ×2 (08:55→12:05)
[2017-11-21] MEDS: PULMICORT NEB TX 0.5 MG NEB SCH (08:55)
[2017-11-21] MEDS: INDERAL TAB 10 MG PO SCH (08:59)
[2017-11-21 09:22] VITALS: BP 114/58
[2017-11-21] MEDS ORDERED: LANTUS SC SCH (21:00)
== END 2017-11-21 12:55 | disposition home health service (06) | DRG 203 ==
LOC: ER 16:00 → MED/SURG 20:34
PROVIDERS: ADMIT Internal Medicine; ATTEND Internal Medicine
DX: R06.02 Shortness of breath; J20.8 Acute bronchitis due to other specified organisms; R53.1 Weakness; K21.9 Gastro-esophageal reflux disease without esophagitis; R07.89 Other chest pain; E11.65 Type 2 diabetes mellitus with hyperglycemia; R48.8 Other symbolic dysfunctions; E86.0 Dehydration; R21 Rash and other nonspecific skin eruption; Z79.899 Other long term (current) drug therapy; I10 Essential (primary) hypertension; R60.0 Localized edema; K74.69 Other cirrhosis of liver
CPT/HCPCS: 36415; 71010; 71045; 80048; 80053; 81001; 82009; 82140; 82947; 85025; 87040; 92507; 92523; 94640; 94760; 96365; 96367; 96374; 96375; 99231; 99283; 99284; A4222; J0456; J0696; J1815; J2920; J7030; J7050; J7620; J7626